=== PATIENT | female | born 1975 | race Caucasian/White ===

== ENCOUNTER 2019-12-26 21:01 | Emergency (ER) | payer SELFPAY ==
[~2019-12-26] VITALS: Ht 152.4 cm; Wt 86.2 kg
[2019-12-26 21:04] VITALS: Ht 152.4 cm; Wt 86.2 kg
[2019-12-26 22:15] LABS: BASOPHIL % 0.7 % (0-2); PLATELET COUNT 335 x10^3mcL (130-400); RED CELL DISTRIBUTION WIDTH 13.3 % (11.5-14.5)
[2019-12-26 22:17] LABS: CALCIUM 8.7 mg/dL (8.5-10.1); CARBON DIOXIDE 27.7 mmol/L (21-32); CHLORIDE SERUM 101 mmol/L (98-107); CREATININE SERUM 0.9 mg/dL (0.6-1.0); GFR1 > 60 mL/min; GLUCOSE SERUM 128 mg/dL (74-106); POTASSIUM SERUM 3.6 mmol/L (3.5-5.1); SODIUM SERUM 138 mmol/L (136-145)
[2019-12-26 22:21] LABS: ALKALINE PHOSPHATASE 132 U/L (46-116); ALT/SGPT 130 U/L (14-59); AST/SGOT 86 U/L (15-37); BILIRUBIN TOTAL 0.43 mg/dL (0.20-1.00); TOTAL PROTEIN, SERUM 7.1 g/dL (6.4-8.2)
[2019-12-26 22:25] LABS: ALBUMIN 3.2 g/dL (3.4-5.0)
[2019-12-26 23:41] VITALS: BP 138/82
== END 2019-12-26 23:41 | disposition home or self-care (01) ==
LOC: ED 21:01
PROVIDERS: Emergency Medicine
DX: I16.1 Hypertensive emergency (principal); G44.209 Tension-type headache, unspecified, not intractable; E88.81 Metabolic syndrome and other insulin resistance
CPT/HCPCS: 83880; J1885; J2060; J3490; Q0092